=== PATIENT | female | born 1990 | race Caucasian/White ===

== ENCOUNTER 2016-06-24 01:39 | Inpatient (IN) | payer BC ==
[2016-06-24] MEDS ORDERED: Lactated Ringers 1,000 ML ONE (07:40)
[2016-06-24] MEDS: Lactated Ringers 1,000 ML IV SCH ×3 (07:45→16:55)
[2016-06-24] MEDS ORDERED: Lidocaine 1% 50 ML MDV INJECT PRN (07:49)
[2016-06-24] MEDS ORDERED: Nalbuphine 20 MG/1 ML Amp IVPUSH PRN (07:49)
[2016-06-24] MEDS ORDERED: Ondansetron 4 MG/2 ML SDV IVPUSH PRN (07:49)
[2016-06-24] MEDS ORDERED: Aluminum Hydroxide/Magnesium Hydroxide/Simethicone Susp 30 ML Cup PO PRN (07:49)
[2016-06-24] MEDS ORDERED: Oxytocin/Lactated Ringers 10 UNIT/1,000 ML BAG IV SCH (08:00)
[2016-06-24] MEDS: Oxytocin/Lactated Ringers 10 UNIT/1,000 ML BAG IV SCH ×2 (08:15→18:05)
[2016-06-24] MEDS ORDERED: Bupivacaine 0.25% 10 ML SDV ONE (12:00)
[2016-06-24] MEDS ORDERED: Lidocaine 1% PF 2 ML SDV ONE (12:00)
[2016-06-24] MEDS ORDERED: fentaNYL 100 MCG/2 ML SDV EPIDUR PRN (16:47)
[2016-06-24] MEDS ORDERED: ePHEDrine 50 MG/ML SDV IVPUSH PRN (16:47)
[2016-06-24] MEDS ORDERED: diphenhydrAMINE 50 MG/ML SDV IVPUSH PRN (16:47)
[2016-06-24] MEDS: Bupivacaine/fentaNYL/NS 100 ML Bag EPIDUR SCH ×3 (17:32→22:30)
--- NOTE | 2016-06-24 17:56 | PCM.PREANE ---
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 Respiratory: Reports: no symptoms Cardiovascular: Reports: no symptoms GI: Reports: no symptoms Other: Reports: none - PHYSICAL ASSESSMENT O2 Sat by Pulse Oximetry: 97 RR: 16 Vital Signs: Last Vital Signs Temp 37.0 C 06/24/16 07:49 Pulse 80 06/24/16 07:49 Resp 16 06/24/16 07:49 BP 121/88 06/24/16 07:49 Pulse Ox 97 06/24/16 07:49 Height: 1.6 m Weight: 84.867 kg ASA Class: 2 Mental Status: alert & oriented x3 Airway Class: Mallampati = 1 Dentition: Reports: normal dentition Thyro-Mental Finger Breadths: 3 Mouth Opening Finger Breadths: 5 ROM/Head Extension: full Respiratory Status: lungs clear to auscultation bilaterally Cardiovascular Status: regular rate & rhythm, normal S1, S2, no murmur, blood pressure WNL - LAB Values: Laboratory Last Values WBC 7.12 K/mm3 (3.98-10.04) 06/24/16 09:48 RBC 4.14 M/mm3 (3.98-5.22) 06/24/16 09:48 Hgb 11.9 gm/L (11.2-15.7) 06/24/16 09:48 Hct 36.3 % (34.1-44.9) 06/24/16 09:48 MCV 87.7 fl (79.4-94.8) 06/24/16 09:48 MCH 28.7 pg (25.6-32.2) 06/24/16 09:48 MCHC 32.8 g/dl (32.2-35.5) 06/24/16 09:48 RDW Std Deviation 43.4 fL (36.4-46.3) 06/24/16 09:48 Plt Count 197 K/mm3 (182-369) 06/24/16 09:48 MPV 11.3 fl (9.4-12.3) 06/24/16 09:48 Neut % (Auto) 69.9 % (34.0-71.1) 06/24/16 09:48 Lymph % (Auto) 19.7 % (19.3-51.7) 06/24/16 09:48 [place] % (Auto) 9.0 % (4.7-12.5) 06/24/16 09:48 Eos % (Auto) 1.0 (0.7-5.8) 06/24/16 09:48 Baso % (Auto) 0.1 % (0.1-1.2) 06/24/16 09:48 Neut # 4.98 K/mm3 (1.56-6.13) 06/24/16 09:48 Lymph # 1.40 K/mm3 (1.18-3.74) 06/24/16 09:48 [place] # 0.64 K/mm3 (0.24-0.36) H 06/24/16 09:48 Eos # 0.07 K/mm3 (0.04-0.36) 06/24/16 09:48 Baso # 0.01 K/mm3 (0.01-0.08) 06/24/16 09:48 - ALLERGIES Allergies/Adverse Reactions: Allergies Allergy/AdvReac Type Severity Reaction Status Date / Time No Known Allergies Allergy Verified 06/24/16 06:57 - BLOOD Blood Available: No - ANESTHESIA PLAN Preop Beta Joel: No Anesthesia Type Planned: epidural - ACKNOWLEDGEMENTS Pt an appropriate candidate for the planned anesthesia: Yes Alternatives and risks of anesthesia discussed w pt/guardian: Yes Pt/Guardian understands and agree with anesthesia plan: Yes PreAnesthesia Questionnaire HEENT History: Reports: Impaired vision 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 Tonsillectomy 1993 - SUBSTANCE USE Smoking Status *Q: Never Smoker Second Hand Smoke Exposure: No Recreational Drug Use History: No - HOME MEDS Home Medications: Home Meds PNV95/Ferrous Fumarate/FA [ Tablet] 1 tab PO DAILY 06/13/15 [History] - CURRENT (IN HOUSE) MEDS Current Meds: Current Medications Al Hydroxide/Mg Hydroxide (Mag-Al Plus) 30 ml PO Q8H PRN PRN Reason: Heartburn Diphenhydramine HCl (Benadryl) 25 mg IVPUSH Q6H PRN PRN Reason: pruritis Ephedrine Sulfate (Ephedrine Sulfate) 5 mg IVPUSH ASDIRECTED PRN PRN Reason: Hypotension Fentanyl (Sublimaze) 100 mcg EPIDUR Q3H PRN PRN Reason: Pain Last Admin: 06/24/16 17:31 Dose: 100 mcg Fentanyl/Bupivacaine HCl (Fentanyl/Bupivacaine/Ns 2 Mcg-0.125% 100 Ml) 100 ml EPIDUR ASDIRECTED TOBIAS Last Admin: 06/24/16 17:32 Dose: 100 ml Lactated Ringer's (Ringers, Lactated) 1,000 mls @ 100 mls/hr IV ASDIRECTED TOBIAS Last Admin: 06/24/16 16:55 Dose: 100 mls/hr Oxytocin/Lactated Ringer's (Pitocin In Lr 10 Units/1,000 Ml) 10 unit in 1,000 mls @ 500 mls/hr IV ASDIRECTED TOBIAS Oxytocin/Lactated Ringer's (Pitocin In Lr 10 Units/1,000 Ml) 10 unit in 1,000 mls @ 12 mls/hr IV TITRATE TOBIAS; 2 MUNITS/MIN PRN Reason: Protocol Last Titration: 06/24/16 12:00 Dose: 20 munits/min, 120 mls/hr Lidocaine HCl (Xylocaine 1%) 50 ml INJECT ONETIME PRN PRN Reason: perineal pain Nalbuphine HCl (Nubain) 10 mg IVPUSH Q2H PRN PRN Reason: Pain (moderate 4-6) Ondansetron HCl (Zofran) 4 mg IVPUSH Q4H PRN PRN Reason: Nausea/Vomiting Discontinued Medications Lactated Ringer's (Ringers, Lactated) Confirm Administered Dose 1,000 mls @ as directed .ROUTE .STK-MED ONE Stop: 06/24/16 07:41 Last Admin: 06/24/16 08:13 Dose: Not Given
[2016-06-25] MEDS: Lactated Ringers 1,000 ML IV SCH (00:43)
[2016-06-25] MEDS: Bupivacaine/fentaNYL/NS 100 ML Bag EPIDUR SCH (01:19)
[2016-06-25] MEDS ORDERED: Acetaminophen 325 MG Tab PO PRN (02:21)
[2016-06-25] MEDS ORDERED: Lanolin 100% Cream 7 GM Tube TOP PRN (02:21)
--- NOTE | 2016-06-25 02:26 | PCM.SN ---
- Free Text/Narrative Note: Elidia was admitted on the morning of 06/24/2016 for elective induction of labor at 40-4/7 weeks gestational age. She was initially given Pitocin to initiate labor and at midday artificial rupture membranes was undertaken. She progressed steadily to complete cervical dilation by 2330 hours. She pushed for approximately 2 hours still 0130 hours on 06/25/2016. At that time the baby was having tachycardia in the 170s to 180s with fair variability and was having decreases in heart rate after contractions. It is difficult to tell whether these were late late decelerations or were returned to normal baseline. Patient's temperature was 99.8. She is given fluid bolus and Pitocin was decreased because there was some tachysystole noted. With is actions the contractions did space out and heart tones did improve somewhat. Patient hours became exhausted and decision was made to proceed with the vacuum extraction delivery. Vacuum extraction was discussed in detail occluding risks, benefits, limitations and followup with patient and her Xavier. They appear to understand and wish to proceed. With vacuum extractor and one long push patient did deliver. Lidocaine 1%-10 cc total was used in addition to the epidural for analgesia/anesthesia. Small episiotomy was performed. This extended to a partial third degree laceration. She delivered in a left occiput anterior position. The a was then delivered with rotation of the shoulder to the right. Was and mouth were bulb suctioned after delivery. The baby was placed on mom's abdomen. Apgars were 4, 6 and 9 at one, 5 and 10 minutes. The baby delivered at 0139 hours on 06/25/2016. It was a female , 8 lbs. 3 oz. (3714 g), was 21.0 inches in length. Cord was clamped x2, cut and baby was taken to the warmer. She received O2 blow by. Cord blood was obtained and the placenta delivered at 0147 hours. The delivered in a Flanagan fashion, appeared intact and the cord had 3 vessels. It was discarded per patient desire. Patient had a right vaginal laceration which was repaired with 3-0 Monocryl in a running fashion. She had an episiotomy which was small but extended to a partial third degree laceration. These were repaired in a routine fashion with 3-0 Monocryl suture. Pitocin was administered after delivery of the baby. Estimated blood loss was 300 cc. Condition: Good. Patient plans to nurse.
[2016-06-25] MEDS: Witch Hazel Medicated Pads 100/Jar TOP PRN (03:11)
[2016-06-25] MEDS: Ibuprofen 600 MG Tab PO PRN ×4 (03:11→19:58)
[2016-06-25] MEDS: Benzocaine/Menthol 20%-0.5% Spray 56 GM Canister TOP PRN (03:12)
--- NOTE | 2016-06-25 07:04 | HP ---
DATE OF ADMISSION: 06/24/2016 ADMISSION DIAGNOSIS: A 40 and 4/7th week intrauterine , elective induction of labor. HISTORY OF PRESENT ILLNESS: The patient is a 25-year-old 2, para 0-0-1-0 white female with an CROW of 06/20/2016 as based upon an early ultrasound done on 11/03/2015 at 7 and 1/7th weeks gestational age. It was also supported by an ultrasound done on 02/02/2016. She is admitted for elective induction of labor for dates. The procedure, risks, benefits, initiation of labor, and progression of labor discussed in detail with the patient. She appears to understand and wishes to proceed. Plan is for Pitocin induction of labor. Her most recent evaluation in clinic showed her cervix to be 2+ cm, 80% effaced, soft, -3, and mid position. 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 Her course has been relatively unremarkable. She had menarche at approximately age 12. Cycles are little bit longer in interval at 35 days. She is not using any control at the time of conception. Her last menstrual was 09/03/2015. She is Rh negative and is a Rh immunoglobulin candidate. She had her RhoGAM given on 03/29/2016 - second trimester, but also had RhoGAM given on 01/08/2016 because of early bleeding. She had an [place] Depression Screen Score of 2, which is normal. She is group B strep negative. She had nausea and vomiting in early . She is looking forward to an epidural in Labor and Delivery. She plans to breastfeed. The course was relatively unremarkable with the exception of bleeding or cramping in early . Her first visit was on 12/08/2015. Her weight gain was from 139 pounds up to 187 pounds for a 49 pounds weight gain. Her vital signs were stable throughout the course and her fundal height growth was appropriate. She has a relatively unremarkable . LABORATORY DATA: Laboratory testing in consisted of a blood type, which showed A negative blood. Antibody screen was negative. Again, she had RhoGAM early in the . Platelets at first visit were 259. Pap smear was negative. Rubella titer showed immunity. RPR is nonreactive. Hepatitis B and HIV assays were both negative. Chlamydia and gonorrhea assays were negative. Second trimester labs showed a hemoglobin of 12.6, a platelet count of 211, and a diabetic screen test of 83. Her group B strep screen was negative. ALLERGIES: No known drug allergies. CURRENT MEDICATIONS: vitamins 1 orally daily. PAST MEDICAL HISTORY: Miscarriage first trimester. PAST SURGICAL HISTORY: 1. Tonsillectomy in 1993. 2. [place] teeth extraction in 2008. FAMILY HISTORY: Mother with irritable bowel syndrome and celiac disease. Mother with latex allergy. Maternal grandmother with breast cancer. Maternal grandfather with colon and lung cancer. Paternal grandfather with skin cancer. SOCIAL HISTORY: The patient is . is Xavier Santizo. She does not use any significant amounts of alcohol, drugs, or tobacco. She lives in [place]. REVIEW OF SYSTEMS: GENERAL: The patient is feeling well. She reports good activity. NEUROLOGICAL: Including vision, sensory, and hearing shows no deficits. CARDIOVASCULAR: No chest pain, shortness of breath, or exercise intolerance. RESPIRATORY: No upper respiratory infection symptoms or signs. No asthma. BREASTS: Changes of , otherwise unremarkable. ABDOMEN AND GI: No concerns. SYSTEM: related changes only. MUSCULOSKELETAL AND EXTREMITIES: No joint swelling, pain, or decreased range of movement. SKIN: No lesions. PHYSICAL EXAMINATION: VITAL SIGNS: Initial height was 5 feet and 3 inches and weight was 139. Her body mass index was 26.9. The patient's weight at her final visit was 187 for a 49 pounds weight gain. Her blood pressure was 122/80 and heart rate was 135. GENERAL: The patient is a well-developed and well-nourished, pleasant female, stated age, in no acute distress. SKIN: Warm and dry without lesions. HEENT, NECK, AND BACK: Within normal limits. LUNGS: Clear with good breath sounds in all lung [place]. CARDIOVASCULAR: Shows regular rate and rhythm without murmurs. Physical exam otherwise was unremarkable. Her breast exam is deferred at this time and on the first visit found to be normal. Her fundal height is consistent with 38 weeks' gestational age. Cervical exam as above was 2+ cm, 80% effaced, soft, -3, and mid position on last evaluation in clinic. EXTREMITIES AND NEUROLOGICAL: Grossly within normal limits. ASSESSMENT: 1. Term intrauterine at 40 and 4/7th weeks' gestational age, admitted for elective induction of labor. 2. Group B strep screen negative. 3. Blood A negative - patient is a RhoGAM candidate. 4. The patient has had her Tdap and is rubella immune. 5. The patient plans to nurse. 6. The patient is interested in epidural for pain control in Labor and Delivery. PLAN: 1. Pitocin/artificial rupture of membranes induction. Procedure, risks, benefits, alternatives of care, and followup were discussed in detail with the patient. She appears to understand and wishes to proceed. 2. We will obtain CBC. 3. IV fluids. 4. Epidural p.r.n. in labor. 5. Anticipate normal spontaneous vaginal delivery. MMPAZ /[id number]
--- NOTE | 2016-06-25 08:06 | PCM48HPAN ---
Post Anesthesia Note - EVALUATION WITHIN 48HRS OF ANESTHETIC Vital Signs in Normal Range: Yes Patient Participated in Evaluation: Yes Respiratory Function Stable: Yes Airway Patent: Yes Cardiovascular Function Stable: Yes Hydration Status Stable: Yes Pain Control Satisfactory: Yes Nausea and Vomiting Control Satisfactory: Yes Mental Status Recovered: Yes
[2016-06-25] MEDS: Prenatal Multivitamin with Calcium/Folic Acid/Iron Tab PO SCH (08:43)
[2016-06-25] MEDS: Docusate Sodium 100 MG Cap PO SCH ×2 (08:43→20:00)
[2016-06-26] MEDS: Ibuprofen 600 MG Tab PO PRN ×4 (00:56→19:59)
--- NOTE | 2016-06-26 06:08 | PCM.SN ---
- Free Text/Narrative Note: The patient is doing well as far and. Has some discomfort. Average lochia. Nursing was going well. Patient is afebrile, vital signs are stable. Abdomen is soft, uterus is just below the umbilicus. Extremities show minimal edema. Assessment: Post day one doing well. Plan: Routine cares. Home tomorrow. CBC today
[2016-06-26] MEDS: Docusate Sodium 100 MG Cap PO SCH ×2 (09:02→19:59)
[2016-06-26] MEDS: Prenatal Multivitamin with Calcium/Folic Acid/Iron Tab PO SCH (09:02)
[2016-06-27] MEDS: Ibuprofen 600 MG Tab PO PRN ×3 (00:27→09:21)
--- NOTE | 2016-06-27 08:13 | PCM.DCSUM1 ---
Discharge Summary - Hospital Course Free Text/Narrative:: Elidia was admitted on the morning of 06/24/2016 for elective induction of labor at 40-4/7 weeks gestational age. She was initially given Pitocin to initiate labor and at midday artificial rupture membranes was undertaken. She progressed steadily to complete cervical dilation by 2330 hours. She pushed for approximately 2 hours still 0130 hours on 06/25/2016. At that time the baby was having tachycardia in the 170s to 180s with fair variability and was having decreases in heart rate after contractions. It is difficult to tell whether these were late late decelerations or were returned to normal baseline. Patient's temperature was 99.8. She is given fluid bolus and Pitocin was decreased because there was some tachysystole noted. With is actions the contractions did space out and heart tones did improve somewhat. Patient hours became exhausted and decision was made to proceed with the vacuum extraction delivery. Vacuum extraction was discussed in detail occluding risks, benefits, limitations and followup with patient and her Xavier. They appear to understand and wish to proceed. With vacuum extractor and one long push patient did deliver. Lidocaine 1%-10 cc total was used in addition to the epidural for analgesia/anesthesia. Small episiotomy was performed. This extended to a partial third degree laceration. She delivered in a left occiput anterior position. The a was then delivered with rotation of the shoulder to the right. Was and mouth were bulb suctioned after delivery. The baby was placed on mom's abdomen. Apgars were 4, 6 and 9 at one, 5 and 10 minutes. The baby delivered at 0139 hours on 06/25/2016. It was a female infant, 8 lbs. 3 oz. (3714 g), was 21.0 inches in length. Cord was clamped x2, cut and baby was taken to the warmer. She received O2 blow by. Cord blood was obtained and the placenta delivered at 0147 hours. The delivered in a Flan[place] fashion, appeared intact and the cord had 3 vessels. It was discarded per patient desire. Patient had a right vaginal laceration which was repaired with 3-0 Monocryl in a running fashion. She had an episiotomy which was small but extended to a partial third degree laceration. These were repaired in a routine fashion with 3-0 Monocryl suture. Pitocin was administered after delivery of the baby. Estimated blood loss was 300 cc. Patient insertion at the present time which has been somewhat of a struggle. She also have supplemented. Her lochia is minimal. She is ambulating well, voiding without problems and is having no real concerns. Her perineal pain is manageable. She has been afebrile and vital signs stable. Her followup CBC has been within normal limits for period with the exception that her hemoglobin is slightly decreased. Patient is desiring to be discharged. - Discharge Data Discharge Date: 06/27/16 Discharge Disposition: Home, Self-Care 01 Condition: Good - Patient Instructions Diet: Regular Diet as Tolerated (Nursing diet was increased calories and calcium as directed.) Activity: As Tolerated (With the exception of no intercourse or tampons until bleeding resolves) Driving: May Drive Today Showering/Bathing: May Shower (May take a bath) - Discharge Plan Home Medications: Home Meds PNV95/Ferrous Fumarate/FA [ Tablet] 1 tab PO DAILY 06/13/15 [History] Ibuprofen [IJD: Ibuprofen] 600 mg PO Q4H PRN #30 tablet 06/27/16 [Rx] Referrals: Moisés Deshpande MD [Primary Care Provider] - (Return to clinic-Dr. Deshpande-6 weeks-[facility] - Discharge Summary/Plan Comment DC Time >30 min.: No Discharge Summary/Plan Comment: Discharge instructions: 1. Discharge home 2. Regular, high-fiber, nursing diet increased calcium and calories as directed. 3. Precautions given concern increased pain, bleeding, temperature, signs/ symptoms of DVT/PE. 4. Activity and followup discussed in detail. 5. Medications per home medication was printed, discussed with and given to the patient. 6. Return to clinic-Dr. Deshpande that 6 weeks-[facility]. Diagnosis: 1. Term -delivered 2. Partial third-degree laceration Condition: Good - Patient Data Vitals - Most Recent: Last Vital Signs Temp 36.9 C 06/27/16 04:06 Pulse 89 06/27/16 04:06 Resp 16 06/27/16 04:06 BP 122/76 06/27/16 04:06 Pulse Ox 98 06/27/16 04:06 Weight - Most Recent: 84.867 kg I&O - Last 24 hours: Intake & Output 06/26/16 06/27/16 06/27/16 22:59 06:59 14:59 Intake Total 120 Balance 120 Lab Results - Last 24 hrs: Laboratory Results - last 24 hr 06/25/16 Range/Units 09:12 Blood Type A NEGATIVE Gel Antibody Screen Positive Antibody Identification Anti-D Screen 1 ros/5 flds - neg RhIG Candidate? Yes Rhogam Indicated Yes, baby rh pos H Med Orders - Current: Current Medications Acetaminophen (Tylenol) 650 mg PO Q4H PRN PRN Reason: mild pain or fever Benzocaine/Menthol (Dermoplast Pain Relief [place]) 0 gm TOP ASDIRECTED PRN PRN Reason: Perineal Comfort Measure Last Admin: 06/25/16 03:12 Dose: 1 applic Docusate Sodium (Colace) 100 mg PO BID [facility] Last Admin: 06/26/16 19:59 Dose: 100 mg Emollient Ointment (Lansinoh Hpa) 0 gm TOP ASDIRECTED PRN PRN Reason: Sore Nipples Last Admin: 06/25/16 18:20 Dose: 1 tube Ibuprofen (Motrin) 600 mg PO Q4H PRN PRN Reason: Mild pain or fever Last Admin: 06/27/16 04:46 Dose: 600 mg Prenat Multivit/Patient Coordinator/Iron/Folic Ac ( Plus Iron) 1 each PO DAILY [facility] Last Admin: 06/26/16 09:02 Dose: 1 each Witch Anay (Tucks) 1 pad TOP ASDIRECTED PRN PRN Reason: Hemorrhoid pain Last Admin: 06/25/16 03:11 Dose: 1 applic Discontinued Medications Al Hydroxide/Mg Hydroxide (Mag-Al Plus) 30 ml PO Q8H PRN PRN Reason: Heartburn Diphenhydramine HCl (Benadryl) 25 mg IVPUSH Q6H PRN PRN Reason: pruritis Ephedrine Sulfate (Ephedrine Sulfate) 5 mg IVPUSH ASDIRECTED PRN PRN Reason: Hypotension Fentanyl (Sublimaze) 100 mcg EPIDUR Q3H PRN PRN Reason: Pain Last Admin: 06/24/16 17:31 Dose: 100 mcg Fentanyl/Bupivacaine HCl (Fentanyl/Bupivacaine/Ns 2 Mcg-0.125% 100 Ml) 100 ml EPIDUR ASDIRECTED [facility] Last Admin: 06/25/16 01:19 Dose: 50 ml Lactated Ringer's (Ringers, Lactated) Confirm Administered Dose 1,000 mls @ as directed .ROUTE .STK-MED ONE Stop: 06/24/16 07:41 Last Admin: 06/24/16 08:13 Dose: Not Given Lactated Ringer's (Ringers, Lactated) 1,000 mls @ 100 mls/hr IV ASDIRECTED TOBIAS Last Admin: 06/25/16 00:43 Dose: 100 mls/hr Oxytocin/Lactated Ringer's (Pitocin In Lr 10 Units/1,000 Ml) 10 unit in 1,000 mls @ 500 mls/hr IV ASDIRECTED TOBIAS Last Admin: 06/25/16 01:57 Dose: 500 mls/hr Oxytocin/Lactated Ringer's (Pitocin In Lr 10 Units/1,000 Ml) 10 unit in 1,000 mls @ 12 mls/hr IV TITRATE TOBIAS; 2 MUNITS/MIN PRN Reason: Protocol Last Titration: 06/25/16 00:51 Dose: 12 munits/min, 72 mls/hr Lidocaine HCl (Xylocaine 1%) 50 ml INJECT ONETIME PRN PRN Reason: perineal pain Last Admin: 06/25/16 01:32 Dose: 50 ml Nalbuphine HCl (Nubain) 10 mg IVPUSH Q2H PRN PRN Reason: Pain (moderate 4-6) Ondansetron HCl (Zofran) 4 mg IVPUSH Q4H PRN PRN Reason: Nausea/Vomiting *Q Meaningful Use (DIS) - VTE *Q VTE Criteria *Q: - Stroke *Q Stroke Criteria *Q: - AMI *Q AMI Criteria *Q:
[2016-06-27] MEDS: Docusate Sodium 100 MG Cap PO SCH (09:21)
[2016-06-27] MEDS: Prenatal Multivitamin with Calcium/Folic Acid/Iron Tab PO SCH (09:21)
[2016-06-27] MEDS: Benzocaine/Menthol 20%-0.5% Spray 56 GM Canister TOP PRN (11:29)
[2016-06-27] MEDS: Witch Hazel Medicated Pads 100/Jar TOP PRN (11:30)
[2016-06-27 11:50] VITALS: BP 114/76
== END 2016-06-27 12:00 | disposition home or self-care (01) | DRG 542 ==
LOC: JD.OB 01:39 → OBSVTOIN 06-25 01:39 → JD.OB 06-25 01:39
PROVIDERS: ADMIT Obstetrics & Gynecology; ATTEND Obstetrics & Gynecology
PROC: 10D07Z6 Extraction of Products of Conception, Vacuum, Via Natural or Artificial Opening (ICD-10-PCS; principal; 2016-06-25)
PROC: 0DQR0ZZ Repair Anal Sphincter, Open Approach (ICD-10-PCS; 2016-06-25)
PROC: 3E033VJ Introduction of Other Hormone into Peripheral Vein, Percutaneous Approach (ICD-10-PCS; 2016-06-25)
PROC: 10907ZC Drainage of Amniotic Fluid, Therapeutic from Products of Conception, Via Natural or Artificial Opening (ICD-10-PCS; 2016-06-25)
PROC: 00HU33Z Insertion of Infusion Device into Spinal Canal, Percutaneous Approach (ICD-10-PCS; 2016-06-25)
PROC: 3E0R3CZ (ICD-10-PCS; 2016-06-25)
DX: O75.0 Maternal distress during labor and delivery (principal); Z3A.41 41 weeks gestation of pregnancy; Z37.0 Single live birth
CPT/HCPCS: 36415; 85025; 85027; 85461; 86850; 86870; 86900; 86901; A9270-GY; J2590; J2790; J3010; J7120

== ENCOUNTER 2019-01-09 00:24 | Inpatient (IN) | payer OTHER ==
[2019-01-09] MEDS ORDERED: Nalbuphine 10 MG/1 ML Vial IVPUSH PRN (07:39)
[2019-01-09] MEDS ORDERED: Sodium Chloride 0.9% 10 ML Syringe FLUSH PRN (07:39)
[2019-01-09] MEDS ORDERED: Lidocaine 1% 50 ML MDV INJECT PRN (07:39)
[2019-01-09] MEDS ORDERED: Oxytocin/Lactated Ringers 10 UNIT/1,000 ML BAG IV SCH ×2 (07:45)
[2019-01-09] MEDS ORDERED: ePHEDrine 50 MG/ML SDV IVPUSH PRN (07:50)
[2019-01-09] MEDS ORDERED: diphenhydrAMINE 50 MG/ML SDV IVPUSH PRN (07:50)
[2019-01-09] MEDS ORDERED: fentaNYL 100 MCG/2 ML SDV EPIDUR PRN (07:50)
--- NOTE | 2019-01-09 07:53 | PCM.PREANE ---
Preanesthetic Assessment - Procedure Proposed Procedure: micki - Anesthesia/Transfusion/Family Hx Anesthesia History: Prior Anesthesia Without Reaction Family History of Anesthesia Reaction: No Transfusion History: No Prior Transfusion(s) - Review of Systems General: No Symptoms Pulmonary: Shortness of Breath (due to baby) Cardiovascular: No Symptoms Gastrointestinal: No Symptoms Neurological: No Symptoms Other: Reports: None - Physical Assessment Vital Signs: 96 20 115/76 Height: 5 ft 3 in Weight: 83.461 kg ASA Class: 2 Mental Status: Alert & Oriented x3 Airway Class: Mallampati = 1 Dentition: Reports: Normal Dentition Thyro-Mental Finger Breadths: 3 Mouth Opening Finger Breadths: 3 ROM/Head Extension: Full Lungs: Clear to Auscultation, Normal Respiratory Effort Cardiovascular: Regular Rate, Regular Rhythm - Allergies Allergies/Adverse Reactions: Allergies Allergy/AdvReac Type Severity Reaction Status Date / Time No Known Allergies Allergy Verified 06/24/16 06:57 - Blood Blood Available: No - Acknowledgements Anesthesia Type Planned: Epidural Pt an Appropriate Candidate for the Planned Anesthesia: Yes Alternatives and Risks of Anesthesia Discussed w Pt/Guardian: Yes Pt/Guardian Understands and Agrees with Anesthesia Plan: Yes PreAnesthesia Questionnaire HEENT History: Reports: Impaired Vision Other HEENT History: wears glasses Cardiovascular History: Reports: None Respiratory History: Reports: None Gastrointestinal History: Reports: GERD (with preg) 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: , 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 : 3 (39 weeks) Para: 1 - Past Surgical History HEENT Surgical History: Reports: Oral Surgery, Tonsillectomy - SUBSTANCE USE Smoking Status *Q: Never Smoker Tobacco Use Within Last Twelve Months: No Second Hand Smoke Exposure: No Days Per Week of Alcohol Use: 0 Recreational Drug Use History: No - HOME MEDS Home Medications: Home Meds PNV95/Ferrous Fumarate/FA [ Tablet] 1 tab PO BEDTIME 06/13/15 [History] - CURRENT (IN HOUSE) MEDS Current Meds: Current Medications Lactated Ringer's (Ringers, Lactated) 1,000 mls @ 100 mls/hr IV ASDIRECTED TOBIAS Oxytocin/Lactated Ringer's (Pitocin In Lr 10 Units/1,000 Ml) 10 unit in 1,000 mls @ 12 mls/hr IV TITRATE TOBIAS; Protocol Oxytocin/Lactated Ringer's (Pitocin In Lr 10 Units/1,000 Ml) 10 unit in 1,000 mls @ 500 mls/hr IV .CONTINUOUS TOBIAS Lidocaine HCl (Xylocaine 1%) 0 ml INJECT ONETIME PRN PRN Reason: Breakthrough Pain Nalbuphine HCl (Nubain) 10 mg IVPUSH Q2H PRN PRN Reason: Pain Sodium Chloride (Saline Flush) 10 ml FLUSH ASDIRECTED PRN PRN Reason: Keep Vein Open
[2019-01-09] MEDS: Lactated Ringers 1,000 ML IV SCH ×5 (08:10→21:18)
[2019-01-09] MEDS ORDERED: fentaNYL/Bupivacaine in NS PF 2 MCG-0.125% 250 ML Premix EPIDUR PRN (18:39)
[2019-01-10] MEDS ORDERED: Bupivacaine 0.25% 10 ML SDV ONE
[2019-01-10] MEDS ORDERED: ePHEDrine 50 MG/ML SDV ONE
--- NOTE | 2019-01-10 00:04 | PCM.SN ---
- Free Text/Narrative Note: Delivery note: Jenna is a 28-year-old 2 now para 2002 white female was admitted on the a.m. of 01/10/2019 for elective induction of labor at 40-4/7 weeks gestational age. She underwent Pitocin induction of labor with artificial rupture membranes augmentation. She made slow but steady progress to complete cervical dilation by approximately 2245 hours. She had an epidural for labor analgesia. She began pushing and pushed until 2328 hrs. at which time she delivered a viable, de leon, female infant with Apgars of 8 and 9, weight 3800 g (8 pounds 6.0 ounces), a length of 22.0 inches in a right occiput anterior position. The baby was placed on mom's abdomen. The Pitocin was increased to 500 mL not facilitate increase uterine tone and decreased likelihood of bleeding. The cord was allowed to pulsate for 1-2 minutes and then was clamped 2 and cut by the baby's father Xavier. Cord bloods obtained. The umbilical cord had 3 vessels. Patient had a second-degree perineal laceration which was repaired in routine fashion using 3-0 Monocryl. Epidural analgesia was used for perineal laceration repair anesthesia. The placenta delivered in a Rosas fashion. It appeared complete and intact and was discarded per patient desire. Patient plans to bottlefeed. Blood loss was 300 mL. Condition: Good.
[2019-01-10] MEDS ORDERED: Acetaminophen 325 MG Tab PO PRN (00:36)
[2019-01-10] MEDS ORDERED: Benzocaine/Menthol 20%-0.5% Spray 56 GM Canister TOP PRN (00:36)
[2019-01-10] MEDS ORDERED: Witch Hazel Medicated Pads 40/Jar TOP PRN (00:36)
[2019-01-10] MEDS ORDERED: Lanolin 100% Cream 7 GM Tube TOP PRN (00:36)
[2019-01-10] MEDS: Ibuprofen 600 MG Tab PO PRN ×4 (01:31→20:31)
--- NOTE | 2019-01-10 07:41 | PCM48HPAN ---
Post Anesthesia Note - EVALUATION WITHIN 48HRS OF ANESTHETIC Vital Signs in Normal Range: Yes Patient Participated in Evaluation: Yes Respiratory Function Stable: Yes Airway Patent: Yes Cardiovascular Function Stable: Yes Hydration Status Stable: Yes Pain Control Satisfactory: Yes Nausea and Vomiting Control Satisfactory: Yes Mental Status Recovered: Yes Vital Signs: Last Vital Signs Temp 36.3 C 01/10/19 04:43 Pulse 84 01/10/19 04:43 Resp 14 01/10/19 04:43 BP 103/61 01/10/19 04:43 Pulse Ox 99 01/10/19 04:43 Above vitals reviewed and noted.
--- NOTE | 2019-01-10 08:51 | PCM.SN ---
- Free Text/Narrative Note: note: Patient is doing well in the period. Minimal lochia, voiding well, ambulated without problems. Nursing without concerns. Patient is afebrile, vital signs are stable Abdomen is flat, soft, uterus is below the umbilicus and is firm and nontender. Legs are nontender. Assessment: recovery going well. Plan: Routine care. Patient be discharged home within the next 24- 48 hours.
[2019-01-10] MEDS: Docusate Sodium 100 MG Cap PO SCH ×2 (10:09→20:31)
[2019-01-10] MEDS: Prenatal Multivitamin with Calcium/Folic Acid/Iron Tab PO SCH (10:09)
[2019-01-11] MEDS: Ibuprofen 600 MG Tab PO PRN ×2 (04:11→08:38)
[2019-01-11] MEDS: Docusate Sodium 100 MG Cap PO SCH (08:34)
[2019-01-11] MEDS: Prenatal Multivitamin with Calcium/Folic Acid/Iron Tab PO SCH (08:34)
[2019-01-11 09:58] VITALS: BP 115/87; PULSE 93
--- NOTE | 2019-01-11 14:09 | PCM.DCSUM1 ---
Discharge Summary - Hospital Course Free Text/Narrative:: Jenna is a 28-year-old 2 now para 2002 white female was admitted on the a.m. of 01/10/2019 for elective induction of labor at 40-4/7 weeks gestational age. She underwent Pitocin induction of labor with artificial rupture membranes augmentation. She made slow but steady progress to complete cervical dilation by approximately 2245 hours. She had an epidural for labor analgesia. She began pushing and pushed until 2328 hrs. at which time she delivered a viable, de leon, female infant with Apgars of 8 and 9, weight 3800 g (8 pounds 6.0 ounces), a length of 22.0 inches in a right occiput anterior position. The baby was placed on mom's abdomen. The Pitocin was increased to 500 mL not facilitate increase uterine tone and decreased likelihood of bleeding. The cord was allowed to pulsate for 1-2 minutes and then was clamped 2 and cut by the baby's father Xavier. Cord bloods obtained. The umbilical cord had 3 vessels. Patient had a second-degree perineal laceration which was repaired in routine fashion using 3-0 Monocryl. Epidural analgesia was used for perineal laceration repair anesthesia. The placenta delivered in a Rosas fashion. It appeared complete and intact and was discarded per patient desire. Patient plans to bottlefeed. Blood loss was 300 mL. Patient had some urinary retention and was catherized for 10 hours but then with the aid of urecholine was able to void without problems. She is desiring discharge home. - Discharge Data Discharge Date: 01/11/19 Discharge Disposition: Home, Self-Care 01 Condition: Good - Referral to Home Health Primary Care Physician: Moisés Deshpande MD - Patient Instructions Diet: Regular Diet as Tolerated Activity: As Tolerated Driving: May Drive Today Showering/Bathing: May Shower Notify Provider of: Fever, Increased Pain, Swelling and Redness, Nausea and/or Vomiting - Discharge Plan Prescriptions/Med Rec: Bethanechol Chloride [Urecholine] 10 mg PO QID #6 tablet Home Medications: Home Meds PNV95/Ferrous Fumarate/FA [ Tablet] 1 tab PO BEDTIME 06/13/15 [History] Acetaminophen [Tylenol] 650 mg PO Q4H PRN tablet 01/11/19 [Rx] Bethanechol Chloride [Urecholine] 10 mg PO QID #6 tablet 01/11/19 [Rx] Ibuprofen [Motrin] 600 mg PO Q4H PRN tablet 01/11/19 [Rx] - Discharge Summary/Plan Comment DC Time >30 min.: No - Patient Data Vitals - Most Recent: Last Vital Signs Temp 36.6 C 01/11/19 09:32 Pulse 93 01/11/19 09:32 Resp 16 01/11/19 09:32 BP 115/87 01/11/19 09:32 Pulse Ox 99 01/11/19 09:32 Weight - Most Recent: 83.461 kg I&O - Last 24 hours: Intake & Output 01/10/19 01/11/19 01/11/19 22:59 06:59 14:59 Intake Total 320 120 Output Total 8254 378 9311 Balance -668 -800 -2383 Lab Results - Last 24 hrs: Laboratory Results - last 24 hr 01/11/19 01/11/19 Range/Units 04:22 04:22 Sodium 141 (136-145) mEq/L Potassium 3.8 (3.5-5.1) mEq/L Chloride 109 H (98-107) mEq/L Carbon Dioxide 27 (21-32) mEq/L Anion Gap 8.8 (5-15) BUN 8 (7-18) mg/dL Creatinine 0.6 (0.55-1.02) mg/dL Est Cr Clr Drug Dosing 115.47 mL/min Estimated GFR (MDRD) > 60 (>60) mL/min BUN/Creatinine Ratio 13.3 L (14-18) Glucose 73 L (74-106) mg/dL Uric Acid 5.9 (2.6-6.0) mg/dL Calcium 8.3 L (8.5-10.1) mg/dL Total Bilirubin 0.2 (0.2-1.0) mg/dL AST 17 (15-37) U/L ALT 14 (14-59) U/L Alkaline Phosphatase 78 (46-116) U/L Total Protein 5.1 L (6.4-8.2) g/dl Albumin 2.1 L (3.4-5.0) g/dl Globulin 3.0 gm/dL Albumin/Globulin Ratio 0.7 L (1-2) Med Orders - Current: Current Medications Acetaminophen (Tylenol) 650 mg PO Q4H PRN PRN Reason: mild pain or fever Last Admin: 01/10/19 10:09 Dose: 650 mg Benzocaine/Menthol (Dermoplast Pain Relief [place]) 0 gm TOP ASDIRECTED PRN PRN Reason: Perineal Comfort Measure Last Admin: 01/10/19 01:30 Dose: 1 can Bethanechol Chloride (Urecholine) 10 mg PO Q6H [facility] Last Admin: 01/11/19 12:33 Dose: 10 mg Docusate Sodium (Colace) 100 mg PO BID [facility] Last Admin: 01/11/19 08:34 Dose: 100 mg Emollient Ointment (Lansinoh Hpa) 0 gm TOP ASDIRECTED PRN PRN Reason: Sore Nipples Ibuprofen (Motrin) 600 mg PO Q4H PRN PRN Reason: Mild pain or fever Last Admin: 01/11/19 08:38 Dose: 600 mg Prenat Multivit/[place]/Iron/Folic Ac ( Plus Iron) 1 each PO DAILY [facility] Last Admin: 01/11/19 08:34 Dose: 1 each Witch Anay (Tucks) 1 pad TOP ASDIRECTED PRN PRN Reason: Pain Last Admin: 01/10/19 01:30 Dose: 1 jar Discontinued Medications Bupivacaine HCl (Sensorcaine-Mpf 0.25%) 10 ml .ROUTE .STK-MED ONE Stop: 01/10/19 00:01 Diphenhydramine HCl (Benadryl) 25 mg IVPUSH Q6H PRN PRN Reason: pruritis Ephedrine Sulfate (Ephedrine Sulfate) 5 mg IVPUSH ASDIRECTED PRN PRN Reason: Hypotension Ephedrine Sulfate (Ephedrine Sulfate) 50 mg .ROUTE .STK-MED ONE Stop: 01/10/19 00:01 Fentanyl (Sublimaze) 100 mcg EPIDUR Q3H PRN PRN Reason: Pain Last Admin: 01/09/19 18:28 Dose: 100 mcg Fentanyl/Bupivacaine HCl (Fentanyl/Bupivacaine/Ns 2 Mcg-0.125% 250 Ml) 2 mcg EPIDUR ONETIME PRN PRN Reason: Abdominal Pain Last Admin: 01/09/19 19:06 Dose: 2 mcg Lactated Ringer's (Ringers, Lactated) 1,000 mls @ 100 mls/hr IV ASDIRECTED [facility] Last Admin: 01/09/19 21:18 Dose: 100 mls/hr Oxytocin/Lactated Ringer's (Pitocin In Lr 10 Units/1,000 Ml) 10 unit in 1,000 mls @ 12 mls/hr IV TITRATE TOBIAS; Protocol Last Titration: 01/09/19 23:08 Dose: 11 munits/min, 66 mls/hr Oxytocin/Lactated Ringer's (Pitocin In Lr 10 Units/1,000 Ml) 10 unit in 1,000 mls @ 500 mls/hr IV .CONTINUOUS TOBIAS Lidocaine HCl (Xylocaine 1%) 0 ml INJECT ONETIME PRN PRN Reason: Breakthrough Pain Nalbuphine HCl (Nubain) 10 mg IVPUSH Q2H PRN PRN Reason: Pain Sodium Chloride (Saline Flush) 10 ml FLUSH ASDIRECTED PRN PRN Reason: Keep Vein Open
[2019-01-12] MEDS ORDERED: Ketorolac 30 MG/ML SDV IVPUSH SCH (10:00)
[2019-01-12] MEDS ORDERED: Ondansetron 4 MG/2 ML SDV IVPUSH PRN (10:00)
[2019-01-12] MEDS ORDERED: Acetaminophen/oxyCODONE 325-5 MG Tab PO PRN (10:00)
--- NOTE | 2019-01-12 10:10 | PCM.OPNOTE ---
- General Post-Op/Procedure Note Date of Surgery/Procedure: 01/12/19 Operative Procedure(s): 1. Total vaginal cystectomy with bilateral salpingo- oophorectomy. 2. subfascial mid-urethral sling procedure Findings: Patient had small to medium size uterus for postmenopausal female. Ovaries were streak ovaries bilaterally. Fallopian tubes had some scarring which. Almost consistent on the right side with a tubal ligation. She has a grade 1-2 cystocele. Minimal rectocele noted. Cervix is multiparous in appearance. Endometrial cavity appeared mildly thickened but otherwise without significant defect. Pre Op Diagnosis: 1. Postmenopausal uterine bleeding. 2. Thickened endometrium. 3. Stress urinary incontinence Post-Op Diagnosis: Same Anesthesia Technique: General ET Tube Other Anesthesia Type: Lidocaine quarter percent with [id number] mL total local Primary Surgeon: Moisés Deshpande Secondary Surgeon: Ramirez Degroot Anesthesia Provider: Karin Raza Log Operations Coordinator: Alessandra Maldonado Reason Log Operations Coordinator Was Necessary: Retraction, assistance, patient safety, quality of care Pathology: Uterus, tubes and ovaries in one specimen container. Fluid Replacement, Intraop: 1,200 Output, Urine Amount: 100 EBL in mLs: 25 Drain/Tube Comments:: Red rubber catheter used to drain and then fill bladder during surgery Complications: None Condition: Good Free Text/Narrative:: Surgery duration: 45 minutes Procedure: The patient was placed in supine position on the operating table. She was appropriately consented. She voided on the way back to the operating room. General endotracheal anesthesia was accomplished. After positioning, and adequate prep and drape, the procedure was then performed. Sterile speculum was placed in the vagina and cervix was visualized. Cervix was injected with [ lidocaine quarter percent with epinephrine]. [20 cc] used. A full circumference incision was made in the cervical epithelium. The bladder was pushed well back off cervix. Posterior cul-de-sac was then entered sharply without problems. Left uterosacral was crossclamped with a Enseal vessel closure system. The left uterosacral and then the right uterosacral ligament pedicles were developed using the Enseal system. The anterior cul-de-sac was then entered without problems and the uterine vasculature, cardinal ligament and broad ligament then developed using Enseal vessel closure system. The uterus was inverted at this time and upper broad ligament fallopian tube pedicles were crossclamped with Michele clamps. Specimen was totally removed. Both these pedicles were then secured with a Michele stitch of #1 Vicryl. Left and right fallopian tremor then visualized and grasped with [place] clamps. The ovaries were found to be streak ovaries and were occluded in the [place] clamp with fallopian tubes. Using a #1 Vicryl suture each these pedicles was then developed. Hemostasis was confirmed at this time. Both fallopian tubes and ovaries were effectively removed. The posterior vaginal cuff was run with an 0 Monocryl suture from approximately 2:00 to 10 o'clock position for hemostatic reasons. The patient was found to be hemostatically intact at this time, both ovaries appeared normal and were left in place. Vaginal cuff was closed with running locked suture of 0 Monocryl. Sub-Fascial, mid urethral sling procedure was then performed. Her bladder was drained with a red rubber catheter. A normal colored urine was removed. The epithelium overlying the urethra was grasped approximately 1 cm from the urethral meatus and approximately 2 cm cephalad from there with Allis clamps. The area of the skin overlying the medial aspect of the obturator foramen on each side just posterior to the origin the abductor longus muscle was marked with a marking pen. These 2 areas and the sub-fascial layer of the vaginal were then infiltrated with lidocaine quarter percent with epinephrine total of approximately 10 mL was used. incisions made in the epithelium overlying the urethra and 2 small stab wounds 3 mm in length were made in the 2 areas of the panty line of the patient. The subfascial planes were adequately dissected bilaterally to allow placement of the mesh. The helical adapter was then placed through the obturator on patient's left side and brought out through the vaginal subfascial plane. Mesh was attached to it and then was pulled back through the obturator foramen. Same was done on the right side. Mesh was then snugged up to the urethra. A Heger Dilator 15 mm in diameter was used as a spacer to place the mesh in a tension- free position. At this point the mesh was cut off at the skin surface and the dilator was removed. The midline epithelium was closed with a short running suture of 3-0 Monocryl. Skin incisions were closed with Dermabond skin glue. These bladder was filled with approximately 240 cc of normal saline to facilitate voiding and therefore discharge home. The patient was returned to supine position, awakened from general endotracheal anesthesia and was discharged from operating room in good.
== END 2019-01-11 14:15 | disposition home or self-care (01) | DRG 768 ==
LOC: JD.OB 00:24 → UNDOADMOB 07:03 → JD.OB 23:28 → INTOOBSV 01-10 00:24 → OBSVTOIN 01-10 00:24 → JD.OB 01-10 00:26
PROVIDERS: ADMIT Obstetrics & Gynecology; ATTEND Obstetrics & Gynecology
PROC: 10E0XZZ Delivery of Products of Conception, External Approach (ICD-10-PCS; principal; 2019-01-11)
PROC: 0UT97ZZ Resection of Uterus, Via Natural or Artificial Opening (ICD-10-PCS; 2019-01-11)
PROC: 0KQM0ZZ Repair Perineum Muscle, Open Approach (ICD-10-PCS; 2019-01-11)
PROC: 0UT77ZZ Resection of Bilateral Fallopian Tubes, Via Natural or Artificial Opening (ICD-10-PCS; 2019-01-11)
PROC: 0UT27ZZ Resection of Bilateral Ovaries, Via Natural or Artificial Opening (ICD-10-PCS; 2019-01-11)
PROC: 10907ZC Drainage of Amniotic Fluid, Therapeutic from Products of Conception, Via Natural or Artificial Opening (ICD-10-PCS; 2019-01-11)
PROC: 3E033VJ Introduction of Other Hormone into Peripheral Vein, Percutaneous Approach (ICD-10-PCS; 2019-01-11)
DX: O48.0 Post-term pregnancy (principal); O70.1 Second degree perineal laceration during delivery; R33.9 Retention of urine, unspecified; O90.89 Other complications of the puerperium, not elsewhere classified; N95.0 Postmenopausal bleeding; N39.3 Stress incontinence (female) (male); Z3A.40 40 weeks gestation of pregnancy; Z37.0 Single live birth
CPT/HCPCS: 01967; 36415; 51701; 51702; 59025; 59409; 80053; 84550; 85025; 86592; A9270-GY; J2590; J3010; J3490; J7120

== ENCOUNTER 2025-03-06 10:07 | Emergency (ER) | payer BC ==
[2025-03-06] MEDS ORDERED: Sodium Chloride 0.9% 10 ML Syringe FLUSH PRN (10:27)
[2025-03-06 10:48] LABS: BASOPHILS ABSOLUTE AUTO 0.0 K/mm3 (0.0-0.2); BASOPHILS PERCENT AUTO 0.3 % (0.0-1.0); EOSINOPHILS ABSOLUTE AUTO 0.1 K/mm3 (0.0-0.4); EOSINOPHILS PERCENT AUTO 0.8 % (0.0-6.0); IMMATURE GRAN ABSOLUTE AUTO 0.01 K/mm3 (0.00-0.05); IMMATURE GRAN PERCENT AUTO 0.1 % (0.0-0.4); LYMPHOCYTES ABSOLUTE AUTO 1.0 K/mm3 (1.0-4.8); LYMPHOCYTES PERCENT AUTO 12.5 % (24.0-44.0); MEAN PLATELET VOLUME 10.1 fl (9.4-12.3); MONOCYTES ABSOLUTE AUTO 0.3 K/mm3 (0.0-0.8); MONOCYTES PERCENT AUTO 4.3 % (0.0-8.0); NEUTROPHILS ABSOLUTE AUTO 6.5 K/mm3 (1.8-7.7); NEUTROPHILS PERCENT AUTO 82.0 % (41.0-71.0); NRBC ABSOLUTE 0.00 (0.00-0.02); NRBC PERCENT 0.0 % (0.0-0.2); RED BLOOD CELL COUNT 5.06 M/mm3 (4.10-5.30); WHITE BLOOD CELL COUNT,WBC 7.90 K/mm3 (3.9-11.3)
[2025-03-06 10:50] LABS: APPEARANCE,URINE SLT CLOUDY (Clear); GLUCOSE,URINE NEGATIVE (Negative); OCCULT BLOOD,URINE TRACE-LYSED (Negative)
[2025-03-06 10:58] LABS: PLATELET COUNT,PLT 269 K/mm3 (150-400)
[2025-03-06 11:06] LABS: A/G RATIO 1.1 (1-2); ALANINE AMINOTRANSFERASE,ALT 25.0 U/L (14-59); ASPARTATE AMNIOTRANSFERASE,AST 19.0 U/L (15-37); BILIRUBIN TOTAL 0.8 mg/dL (0.2-1.0); BLOOD UREA NITROGEN,BUN 12.0 mg/dL (7-18); CARBON DIOXIDE,CO2 26.0 mEq/L (21-32); CHLORIDE,CL 107.0 mEq/L (98-107); CREATININE 0.8 mg/dL (0.55-1.02); EST CRCL DRUG DOSING (CG) 81.97 mL/min; ESTIMATED GFR 99.0 mL/min (>60); GLUCOSE RANDOM 99.0 mg/dL (70-99); POTASSIUM,K 4.3 mEq/L (3.5-5.1); PROTEIN TOTAL,TP 7.4 g/dl (6.4-8.2); SODIUM,NA 142.0 mEq/L (136-145)
[2025-03-06 11:11] LABS: LACTIC ACID 0.8 mmol/L (0.4-2.0)
[2025-03-06] MEDS: Iopamidol 612 MG/ML 100 ML Bottle IVPUSH ONE (11:30)
[2025-03-06] MEDS: Sodium Chloride 0.9% 10 ML Syringe FLUSH ONE (11:31)
[2025-03-06 15:39] VITALS: BP 124/82; PULSE 75
== END 2025-03-06 15:20 ==
LOC: JD.ED 10:07
DX: R10.31 Right lower quadrant pain (principal); K63.89 Other specified diseases of intestine
CPT/HCPCS: 36415; 74177; 80053; 81001; 83605; 84703; 85025; 85652; 86140; 96365; 99285; J2543; J7030; Q9967